=== PATIENT | female | born 1950 | race American Indian/Alaskan Native ===

== ENCOUNTER 2021-09-17 08:48 | Emergency (ER) | payer MEDICARE ==
--- NOTE | 2021-09-17 09:08 | Emergency Department Report ---
ED Abdominal Pain HPI - General Chief Complaint: Abdominal Pain Stated Complaint: ABDOMINAL PAIN Time Seen by Provider: 09/17/21 09:01 Source: EMS Mode of arrival: Stretcher Limitations: No Limitations - History of Present Illness Initial Comments: Patient is a 31-year-old female presenting to the ED via EMS with complaint of lower abdominal pain beginning yesterday morning. She describes it as a aching sensation. States she drank some green tea as she thought she may be "backed up" with no improvement. She also reports nausea and vomiting without diarrhea. No reported fever or chills. Of note she has history of chronic back pain and is on opioid pain medications. - Related Data Allergies Allergy/AdvReac Type Severity Reaction Status Date / Time gabapentin Allergy Unknown Unknown Verified 09/17/21 09:50 tramadol Allergy Unknown Unknown Verified 09/17/21 09:50 ED Review of Systems ROS: Stated complaint: ABDOMINAL PAIN Other details as noted in HPI Comment: All other systems reviewed and negative Constitutional: denies: chills, fever Respiratory: denies: cough, shortness of breath, wheezing Cardiovascular: denies: chest pain, palpitations Gastrointestinal: abdominal pain, nausea, vomiting. denies: diarrhea Musculoskeletal: back pain Skin: denies: rash, lesions Neurological: denies: headache, weakness, paresthesias Psychiatric: denies: anxiety, depression ED Past Medical Hx - Past Medical History Previous Medical History?: Yes Hx Heart Attack/AMI: Yes Hx Congestive Heart Failure: Yes Hx COPD: Yes Additional medical history: STROKE ED Physical Exam - General Limitations: No Limitations General appearance: alert, in no apparent distress - Head Head exam: Present: atraumatic, normocephalic - Respiratory Respiratory exam: Present: normal lung sounds bilaterally. Absent: respiratory distress - Cardiovascular Cardiovascular Exam: Present: regular rate, normal rhythm, normal heart sounds - GI/Abdominal GI/Abdominal exam: Present: soft, tenderness (Mild tenderness across lower abdomen). Absent: distended, guarding, rebound - Rectal Rectal exam: Present: deferred - Neurological Exam Neurological exam: Present: alert, oriented X3 - Psychiatric Psychiatric exam: Present: normal affect, normal mood - Skin Skin exam: Present: warm, dry, intact, normal color ED Course Vital Signs 09/17/21 09/17/21 09/17/21 08:56 10:07 12:06 Pulse Rate 95 H 107 H Respiratory 18 18 20 Rate Blood Pressure 197/113 214/114 [Left] O2 Sat by Pulse 99 100 Oximetry ED Medical Decision Making - Lab Data Result diagrams: 09/17/21 09:34 09/17/21 09:34 - Medical Decision Making Thrombocytopenia noted on CBC. Chemistry and urinalysis grossly unremarkable. CT obtained and shows mild thickening of the sigmoid and distal descending colon suggestive of possible mild diverticulitis. WBC count is normal. Patient is afebrile. My suspicion for acute diverticulitis is low at this time. Patient was given IV Toradol and morphine with significant improvement of her symptoms. Critical care attestation.: If time is entered above; I have spent that time in minutes in the direct care of this critically ill patient, excluding procedure time. ED Disposition Clinical Impression: Lower abdominal pain Disposition: 01 HOME / SELF CARE / HOMELESS Is pt being admited?: No Condition: Stable Instructions: Abdominal Pain (ED), Abdominal Pain, Adult, [id number] Additional Instructions: Please follow-up with your regular doctor within 1 week. You may return if your symptoms worsen or if new symptoms develop. Time of Disposition: 12:28
--- NOTE | 2021-09-17 09:37 | XRay Report ---
ABDOMEN AP SUPINE PORTABLE 0915 INDICATION: Abdominal pain/constipation COMPARISON: None available. FINDINGS: Abdomen is nearly gasless. No obvious bowel dilatation. No obvious urinary tract calculi. Signer Name: Mario Valera MD Signed: 09/17/2021 9:33 AM Workstation Name: [id number]
[2021-09-17] MEDS ORDERED: KETOROLAC 30 MG/1 ML INJ IV ONE (09:51)
[2021-09-17] MEDS ORDERED: ONDANSETRON 4 MG ODT TAB PO ONE (10:00)
[2021-09-17 10:32] LABS: Bilirubin,Urine NEG (Negative); Blood,Urine NEG (Negative); Color,Urine Straw (Yellow); Protein,Urine <15 mg/dL mg/dL (Negative); Urobilinogen,Urine < 2.0 mg/dL (<2.0)
[2021-09-17 10:34] LABS: Basophils % (Auto) 0.3 % (0.0-1.8); Eosinophils % (Auto) 0.2 % (0.0-4.3); Hematocrit 41.9 % (30.3-42.9); Hemoglobin 13.1 gm/dl (10.1-14.3); Lymphocytes # (Auto) 0.9 K/mm3 (1.2-5.4); Lymphocytes % (Auto) 11.8 % (13.4-35.0); Mean Corpuscular HGB Conc 31 % (30-34); Mean Corpuscular Volume 91 fl (79-97); Monocytes # (Auto) 0.4 K/mm3 (0.0-0.8); Monocytes % (Auto) 4.7 % (0.0-7.3); Red Blood Count 4.61 M/mm3 (3.65-5.03); Red Cell Distribution Width 16.3 % (13.2-15.2)
[2021-09-17 10:41] LABS: Bacteria,Urine 1+ /HPF (Negative); WBC,Urine < 1.0 /HPF (0.0-6.0)
[2021-09-17 10:43] LABS: Platelet Count 78 K/mm3 (140-440)
[2021-09-17 10:48] LABS: Blood Urea Nitrogen 23 mg/dL (7-17); Calcium 9.9 mg/dL (8.4-10.2); Hemolysis Index 20
[2021-09-17 10:52] LABS: Albumin 3.8 g/dL (3.9-5); Bilirubin,Direct 0.6 mg/dL (0-0.2)
[2021-09-17 10:56] LABS: BUN/Creatinine Ratio 33
[2021-09-17] MEDS ORDERED: MORPHINE 4 MG/1 ML INJ IV ONE (11:35)
[2021-09-17] MEDS ORDERED: hydrALAZINE 20 MG/1 ML INJ IV ONE (11:35)
--- NOTE | 2021-09-17 12:15 | Cat Scan Report ---
CT ABDOMEN AND PELVIS WITHOUT CONTRAST INDICATION: Abdominal pain CONTRAST: Without IV COMPARISON: None available. All CT scans at this location are performed using CT dose reduction for ALARA by means of automated e xposure control. FINDINGS: Lung bases show chronic changes. A soft tissue mass is seen along the pleural surface poste rior laterally in the right lower lobe measuring 16 mm in diameter. Mild atelectatic changes. No defi nite pneumonic infiltrates. No significant pleural effusions. Minimal pericardial effusion. Small hia marion hernia. Thickening of distal esophagus. No pneumoperitoneum. Mild ascites. Liver has a prominently cirrhotic appearance without obvious focal lesion. Spleen is not significantly enlarged. Mild edema is seen internally. Minimal splenic and gas tric varices. Left kidney is mildly low-lying. No urinary tract calculi or evidence of obstruction. G allbladder shows a phrygian cap. Gallbladder wall appears mildly thickened but no calculi are seen. N o biliary dilatation. No abnormalities seen of the pancreas or adrenals. No lymphadenopathy. No pelvi c masses. No significant abdominal wall herniation. Colonic diverticulosis is seen. The proximal sigmoid colon and distal descending colon show possible mild inflammation and wall thickening of concern for mild acute diverticulitis. No bowel obstruction. Appendix normal. IMPRESSION: 1. Peripheral soft tissue mass in right lower lobe of concern for neoplasia 2. Prominent cirrhosis of the liver with mild evidence of portal hypertension 3. Small hiatal hernia and changes in the distal esophagus which may relate to reflux but are nonspec ific 4. Edematous appearance of the gallbladder without obvious calculi. Acute cholecystitis is not exclud ed. I could just relate to generalized edema however. 5. Mild ascites 6. Possible mild acute diverticulitis without obvious complication of the distal descending and proxi mal sigmoid colon Signer Name: Mario Vaelra MD Signed: 09/17/2021 12:11 PM Workstation Name: [id number]
[2021-09-17 13:38] VITALS: BP 176/99
--- NOTE | 2021-09-19 10:38 | Electrocardiograph Report ---
[facility] [place] Test Date: 2021-09-17 Test Time: 09:11:29 Pat Name: JAGDEEP SCHAFER Department: Room: Gender: F Pharmacy Resident: [id number] : 1950 Requested By: SMITHA SIMON Order Number: [id number] Reading MD: Loree Sahni Measurements Intervals [place] Rate: 109 P: 83 IL: 124 QRS: 67 QRSD: 91 T: 60 QT: 369 QTc: 497 Interpretive Statements Sinus tachycardia No previous ECG available for comparison Electronically Signed On 09-19-2021 10:38:14 EDT by Loree Sahni
== END 2021-09-17 13:38 | disposition home or self-care (01) ==
LOC: ED 08:48
DX: R10.30 Lower abdominal pain, unspecified (principal); I11.0 Hypertensive heart disease with heart failure; I50.9 Heart failure, unspecified; I21.9 Acute myocardial infarction, unspecified; J44.1 Chronic obstructive pulmonary disease with (acute) exacerbation
CPT/HCPCS: 36415; 74018; 74176; 80048; 80076; 81001; 83690; 85025; 93005; 96374; 96375; 99285; J0360; J1885; J2270; J3490; Q0162

== ENCOUNTER 2021-12-08 12:31 | Emergency (ER) | payer MEDICARE ==
--- NOTE | 2021-12-08 15:02 | Emergency Department Report ---
Chief Complaint: Fall Stated Complaint: BODYACHES - HPI History of Present Illness: Patient comes in for left lower leg swelling and pain. 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 Denies hitting her head. - Exam Vital Signs: Vital Signs 12/08/21 12/08/21 14:01 14:59 Temperature 98.6 F Pulse Rate 100 H 96 H Respiratory 18 18 Rate Blood Pressure 105/49 150/76 [Right] O2 Sat by Pulse 98 Oximetry Physical Exam: AxO NAD breath effortless left leg swelling and TTP. MSE screening note: Focused history and physical exam performed. Due to findings the following was ordered: ED Disposition for MSE Condition: Stable
--- NOTE | 2021-12-08 16:31 | XRay Report ---
LEFT KNEE 3 VIEWS INDICATION / CLINICAL INFORMATION: Injury of left knee after fall. COMPARISON: None available. FINDINGS: BONES and JOINT(S): The bones are demineralized. There is moderate tricompartmental osteoarthritis wi th depression of the medial aspect of the tibial plateau without visualization of an acute displaced fracture. No dislocation. SOFT TISSUES: No significant abnormality. ADDITIONAL FINDINGS: None. IMPRESSION: Moderate osteoarthritis of the left knee with depression of the medial tibial plateau, likely represe nting sequela of arthritis or remote trauma. Please correlate with the clinical findings. Signer Name: Hernan Kathleen MD Signed: 12/08/2021 4:26 PM Workstation Name: [email or web address]
--- NOTE | 2021-12-08 17:19 | Vascular Lab Report ---
DUPLEX DOPPLER LOWER EXTREMITY VEINS, LEFT INDICATION / CLINICAL INFORMATION: unilateral swelling and pain. TECHNIQUE: Duplex doppler imaging was performed through the veins of the left lower extremity using v enous compression and other maneuvers. COMPARISON: None available. FINDINGS: LEFT COMMON FEMORAL VEIN: Negative. LEFT FEMORAL VEIN: Negative. LEFT POPLITEAL VEIN: Negative. LEFT CALF VEINS: Limited visualization without evidence of thrombosis. ADDITIONAL FINDINGS: Subcutaneous edema. IMPRESSION: 1. No sonographic evidence for DVT in the left lower extremity. Signer Name: Sunil Cid MD Signed: 12/08/2021 5:15 PM Workstation Name: [id number]
[2021-12-08] MEDS ORDERED: ONDANSETRON 4 MG/2 ML INJ IM ONE (17:23)
[2021-12-08] MEDS ORDERED: MORPHINE 4 MG/1 ML INJ IM ONE (17:23)
--- NOTE | 2021-12-08 17:38 | Emergency Department Report ---
HPI - General Chief Complaint: Fall Time Seen by Provider: 12/08/21 16:57 - HPI HPI: Room 36 The patient is a 71-year-old female present with a chief complaint of pain after fall. Patient states yesterday she fell while trying to get into a shuttle bus landing on her left side. Patient complains of pain in her lower back left hip and entire left lower extremity. There is no loss of conscious. ED Past Medical Hx - Past Medical History Hx Hypertension: Yes Hx CVA: Yes (X2) Hx Heart Attack/AMI: Yes Hx Congestive Heart Failure: Yes Hx Diabetes: Yes Hx Arthritis: Yes (Osteoarthritis) Hx Asthma: Yes Hx COPD: Yes - Surgical History Additional Surgical History: Right total knee replacement, back surgery, hysterectomy - Family History Family history: no significant - Social History Smoking Status: Former Smoker (None x8 months) Substance Use Type: None, Alcohol (Red wine occasionally) - Medications Home Medications: Home Medications Medication Instructions Recorded Confirmed Last Taken Type oxyCODONE [roxiCODONE] 5 mg PO Q6HR PRN #10 tablet 12/08/21 Unknown Rx ED Review of Systems ROS: Stated complaint: BODYACHES Other details as noted in HPI Eyes: denies: eye pain ENT: denies: throat pain Respiratory: no symptoms reported Cardiovascular: denies: chest pain Endocrine: no symptoms reported Gastrointestinal: denies: abdominal pain Musculoskeletal: arthralgia, myalgia Physical Exam - Physical Exam Vital Signs: Vital Signs 12/08/21 12/08/21 14:01 14:59 Temperature 98.6 F Pulse Rate 100 H 96 H Respiratory 18 18 Rate Blood Pressure 105/49 150/76 [Right] O2 Sat by Pulse 98 Oximetry Physical Exam: GENERAL: The patient is well-developed well-nourished female lying on stretcher not appearing to be in acute distress. [] HEENT: Normocephalic. Atraumatic. Extraocular motions are intact. Patient has moist mucous membranes. NECK: Supple. Trachea midline CHEST/LUNGS: Clear to auscultation. There is no respiratory distress noted. HEART/CARDIOVASCULAR: Regular. There is no tachycardia. There is no gallop rub or murmur. ABDOMEN: Abdomen is soft, nontender. Patient has normal bowel sounds. There is no abdominal distention. SKIN: There is no rash. There is no edema. There is no diaphoresis. NEURO: The patient is awake, alert, and oriented. The patient is cooperative. The patient has no focal neurologic deficits. The patient has normal speech. GCS 15 MUSCULOSKELETAL: There is tenderness to palpation of the lumbar spine. There is tenderness to palpation of the left hip, left knee and left lower extremity. Tenderness to palpation bilateral feet. ED Course Vital Signs 12/08/21 12/08/21 14:01 14:59 Temperature 98.6 F Pulse Rate 100 H 96 H Respiratory 18 18 Rate Blood Pressure 105/49 150/76 [Right] O2 Sat by Pulse 98 Oximetry ED Medical Decision Making - Radiology Data Radiology results: report reviewed (Left lower extremity Doppler, bilateral foot x-ray, CT left lower extremity), image reviewed (Left lower extremity Doppler, lumbar spine x-ray, bilateral foot x-ray, CT of lower extremity) interpreted by me: Lumbar spine x-ray-no acute fractures Bilateral foot x-rays-no acute fracture [facility] [address] [place] [address] Vascular Lab Report Signed Patient: JAGDEEP SCHAFER MR#: [id number] [id number] : 1950 Acct:[id number] Age/Sex: 71 / F ADM Date: 12/08/21 Loc: ED Attending Dr: Ordering Physician: SHAKILA NOEL Date of Service: 12/08/21 Procedure(s): VL venous duplex LE LT Accession Number(s): [id number] cc: SHAKILA NOEL DUPLEX DOPPLER LOWER EXTREMITY VEINS, LEFT INDICATION / CLINICAL INFORMATION: unilateral swelling and pain. TECHNIQUE: Duplex doppler imaging was performed through the veins of the left lower extremity using venous compression and other maneuvers. COMPARISON: None available. FINDINGS: LEFT COMMON FEMORAL VEIN: Negative. LEFT FEMORAL VEIN: Negative. LEFT POPLITEAL VEIN: Negative. LEFT CALF VEINS: Limited visualization without evidence of thrombosis. ADDITIONAL FINDINGS: Subcutaneous edema. IMPRESSION: 1. No sonographic evidence for DVT in the left lower extremity. Signer Name: Zhen Sapp MD Signed: 12/08/2021 5:15 PM Workstation Name: [id number] Transcribed By: ELIOT Dictated By: ZHEN SAPP MD Electronically Authenticated By: ZHEN SAPP MD Signed Date/Time: 12/08/211714 DD/ 12 TD/TT: [address] [address] XRay Report Signed Patient: JAGDEEP SCHAFER MR#: [id number] 0162 : 1950 Acct:[id number] Age/Sex: 71 / F ADM Date: 12/08/21 Loc: ED Attending Dr: Ordering Physician: TAMMI CROOK MD Date of Service: 12/08/21 Procedure(s): XR spine lumbosacral 2-3V Accession Number(s): [id number] cc: TAMMI CROOK MD Fluoro Time In Minutes: LUMBAR SPINE 2 VIEWS INDICATION / CLINICAL INFORMATION: Pain after fall. COMPARISON: None available. FINDINGS: BONES / JOINT(S): Negative for fracture. Minimal anterolisthesis L4 on L5 is likely degenerative in origin. Mild dextroconvex scoliosis with the apex at the lower lumbar spine. Mild degenerative disc disease is scattered diffusely. SOFT TISSUES: No significant abnormality. ADDITIONAL FINDINGS: None. Signer Name: Huber Hopkins MD Signed: 12/08/2021 6:07 PM Workstation Name: [id number] Transcribed By: ES Dictated By: Huber Hopkins MD Electronically Authenticated By: Huber Hopkins MD Signed Date/Time: 12/08/211806 DD/ 05 TD/TT: [address] [address] XRay Report Signed Patient: JAGDEEP SCHAFER MR#: [id number] 0162 : 1950 A cct:[id number] Age/Sex: 71 / F ADM Date: 12/08/21 Loc: ED Attending Dr: Ordering Physician: TAMMI CROOK MD Date of Service: 12/08/21 Procedure(s): XR foot BILAT 3+V Accession Number(s): [id number] cc: TAMMI CROOK MD Fluoro Time In Minutes: RIGHT FOOT 3 VIEWS INDICATION / CLINICAL INFORMATION: Pain after fall. COMPARISON: None available. FINDINGS: BONES / JOINT(S): Negative for fracture. Moderate bunion first metatarsal head medially with associated hallux valgus. SOFT TISSUES: No significant abnormality. ADDITIONAL FINDINGS: None. LEFT FOOT 3 VIEWS INDICATION / CLINICAL INFORMATION: Pain after fall. COMPARISON: None available. FINDINGS: BONES / JOINT(S): Negative for fracture. Moderate bunion first metatarsal head medially. Mild hallux valgus at the first metatarsophalangeal joint. Mild calcaneal spurring. SOFT TISSUES: No significant abnormality. ADDITIONAL FINDINGS: None. Signer Name: Huber Hopkins MD Signed: 12/08/2021 6:10 PM Workstation Name: [id number] Transcribed By: ES Dictated By: Huber Hopkins MD Electronically Authenticated By: Huber Hopkins MD Signed Date/Time: 12/08/211809 DD/ 06 TD/TT: [address] [address] XRay Report Signed Patient: JAGDEEP SCHAFER MR#: [id number] 0162 : 1950 Acct:[id number] Age/Sex: 71 / F ADM Date: 12/08/21 Loc: ED Attending Dr: Ordering Physician: SHAKILA NOEL Date of Service: 12/08/21 Procedure(s): XR knee 3V LT Accession Number(s): [id number] cc: SHAKILA NOEL Fluoro Time In Minutes: LEFT KNEE 3 VIEWS INDICATION / CLINICAL INFORMATION: Injury of left knee after fall. COMPARISON: None available. FINDINGS: BONES and JOINT(S): The bones are demineralized. There is moderate tricompartmental osteoarthritis with depression of the medial aspect of the tibial plateau without visualization of an acute displaced fracture. No dislocation. SOFT TISSUES: No significant abnormality. ADDITIONAL FINDINGS: None. IMPRESSION: Moderate osteoarthritis of the left knee with depression of the medial tibial plateau, likely representing sequela of arthritis or remote trauma. Please correlate with the clinical findings. Signer Name: Hernan Kathleen MD Signed: 12/08/2021 4:26 PM Workstation Name: [id number] Transcribed By: [place] Dictated By: Hernan Kathleen MD Electronically Authenticated By: Hernan Kathleen MD Signed Date/Time: 12/08/21 1626 DD/ 162 TD/TT: [facility] [address] [address] Cat Scan Report Signed Patient: JAGDEEP SCHAFER MR#: [id number] 0162 : 1950 Acct:[id number] Age/Sex: 71 / F ADM Date: 12/08/21 Loc: ED Attending Dr: Ordering Physician: TAMMI CROOK MD Date of Service: 12/08/21 Procedure(s): CT lower extremity LT wo con Accession Number(s): [id number] cc: TAMMI CROOK MD CT LEFT KNEE WITHOUT CONTRAST INDICATION / CLINICAL INFORMATION: Pain after fall. Suspicious tibial plateau on xr. TECHNIQUE: All CT scans at this location are performed using CT dose reduction for ALARA by means of automated exposure control. COMPARISON: Same day radiographs FINDINGS: BONES: No fracture. No osseous lesion. JOINT SPACE: Advanced tricompartmental degenerative changes. Small supra patellar effusion. No significant popliteal cyst. No intra-articular bodies. PATELLOFEMORAL ALIGNMENT: No significant abnormality. MUSCLES / TENDONS: No significant abnormality. LIGAMENTS: No significant abnormality. SOFT TISSUES: Diffuse subcutaneous edema about the knee. ADDITIONAL FINDINGS: None. IMPRESSION: 1. No acute abnormality, specifically no tibial plateau fracture. 2. Advanced tricompartmental degenerative changes with small joint effusion. Signer Name: Zhen Sapp MD Signed: 12/08/2021 8:48 PM Workstation Name: [id number] Transcribed By: Dictated By: ZHEN SAPP MD Electronically Authenticated By: ZHEN SAPP MD Signed Date/Time: 12/08/212047 DD/ 43 TD/TT: - Differential Diagnosis Lower extremity fracture, lower extremity contusion, lumbar strain, bilater Critical care attestation.: If time is entered above; I have spent that time in minutes in the direct care of this critically ill patient, excluding procedure time. ED Disposition Clinical Impression: Contusion of left knee, Contusion of right foot, Contusion of left foot Disposition: 01 HOME / SELF CARE / HOMELESS Is pt being admited?: No Does the pt Need Aspirin: No Condition: Stable Instructions: Contusion, Pdeo-ak-Jext Prescriptions: oxyCODONE [roxiCODONE] 5 mg PO Q6HR PRN #10 tablet PRN Reason: Pain Referrals: DOT HAZEL MD [Primary Care Provider] - 3-5 Days
--- NOTE | 2021-12-08 18:11 | XRay Report ---
LUMBAR SPINE 2 VIEWS INDICATION / CLINICAL INFORMATION: Pain after fall. COMPARISON: None available. FINDINGS: BONES / JOINT(S): Negative for fracture. Minimal anterolisthesis L4 on L5 is likely degenerative in o rigin. Mild dextroconvex scoliosis with the apex at the lower lumbar spine. Mild degenerative disc di sease is scattered diffusely. SOFT TISSUES: No significant abnormality. ADDITIONAL FINDINGS: None. Signer Name: Huber Hopkins MD Signed: 12/08/2021 6:07 PM Workstation Name: [email or web address]
--- NOTE | 2021-12-08 18:14 | XRay Report ---
RIGHT FOOT 3 VIEWS INDICATION / CLINICAL INFORMATION: Pain after fall. COMPARISON: None available. FINDINGS: BONES / JOINT(S): Negative for fracture. Moderate bunion first metatarsal head medially with associat ed hallux valgus. SOFT TISSUES: No significant abnormality. ADDITIONAL FINDINGS: None. LEFT FOOT 3 VIEWS INDICATION / CLINICAL INFORMATION: Pain after fall. COMPARISON: None available. FINDINGS: BONES / JOINT(S): Negative for fracture. Moderate bunion first metatarsal head medially. Mild hallux valgus at the first metatarsophalangeal joint. Mild calcaneal spurring. SOFT TISSUES: No significant abnormality. ADDITIONAL FINDINGS: None. Signer Name: Huber Hopkins MD Signed: 12/08/2021 6:10 PM Workstation Name: [email or web address]
--- NOTE | 2021-12-08 20:52 | Cat Scan Report ---
CT LEFT KNEE WITHOUT CONTRAST INDICATION / CLINICAL INFORMATION: Pain after fall. Suspicious tibial plateau on xr. TECHNIQUE: All CT scans at this location are performed using CT dose reduction for ALARA by means of automated exposure control. COMPARISON: Same day radiographs FINDINGS: BONES: No fracture. No osseous lesion. JOINT SPACE: Advanced tricompartmental degenerative changes. Small suprapatellar effusion. No signifi cant popliteal cyst. No intra-articular bodies. PATELLOFEMORAL ALIGNMENT: No significant abnormality. MUSCLES / TENDONS: No significant abnormality. LIGAMENTS: No significant abnormality. SOFT TISSUES: Diffuse subcutaneous edema about the knee. ADDITIONAL FINDINGS: None. IMPRESSION: 1. No acute abnormality, specifically no tibial plateau fracture. 2. Advanced tricompartmental degenerative changes with small joint effusion. Signer Name: Sunil Cid MD Signed: 12/08/2021 8:48 PM Workstation Name: [id number]
--- NOTE | 2021-12-08 21:21 | XRay Report ---
LEFT HIP 3 VIEW(S) INDICATION / CLINICAL INFORMATION: Pain after fall COMPARISON: None available. FINDINGS: Prominent soft tissue limits evaluation of fine bony detail. BONES / JOINT(S): No acute fracture or subluxation. Mild degenerative changes both hips. SOFT TISSUES: No significant abnormality. ADDITIONAL FINDINGS: None. IMPRESSION: 1. No acute findings. Signer Name: Sunil Cid MD Signed: 12/08/2021 9:16 PM Workstation Name: [email or web address]
[2021-12-08 23:02] VITALS: BP 128/73
== END 2021-12-08 22:49 | disposition home or self-care (01) ==
LOC: ED 12:31
DX: S80.02XA Contusion of left knee, initial encounter (principal); S90.32XA Contusion of left foot, initial encounter; S90.31XA Contusion of right foot, initial encounter; W19.XXXA Unspecified fall, initial encounter; I10 Essential (primary) hypertension; Z87.891 Personal history of nicotine dependence; F10.20 Alcohol dependence, uncomplicated; E11.9 Type 2 diabetes mellitus without complications; Y93.89 Activity, other specified; Y92.89 Other specified places as the place of occurrence of the external cause; Y99.8 Other external cause status
CPT/HCPCS: 72100; 73502; 73562; 73630; 73700; 93971; 96372; 99284; J2270; J2405